=== PATIENT | male | born 1970 | race Two or more races ===

== ENCOUNTER 2024-07-04 09:19 | Emergency (ER) | payer OTHER, SELFPAY ==
[2024-07-04 09:49] VITALS: BMI 28.3
[2024-07-04 09:53] VITALS: BP 117/86; PULSE 103; RESP 18; TEMP 37.3; O2SAT 97
--- NOTE | 2024-07-04 10:47 | EDNOTE_ITS ---
ED Dental RME/HPI General Chief complaint: Dental/Oral/Throat Stated complaint: PERITONSILLAR ABCESS WITH DROOLING Time Seen by Provider: 07/04/24 10:02 Arrival date/time: 07/04/24 09:19 RME / HPI RME / HPI Narrative: 54 year old male with history of depression, anxiety, bipolar disorder presents to the ED BIB [facility] for evaluation of sore throat today. Patient reportedly has had a sore throat for 3 months however worsening in the last week. Now accompanied by drooling and difficulty swallowing due to pain. Per [facility], staff at the senior living facility are concerned patient may have peritonsillar abscess. Patient states he is not currently on any antibiotics. Denies fevers, chills, difficulty breathing, nausea, vomiting, abdominal pain, or other associated symptoms. Related Data Allergies Allergy/AdvReac Type Severity Reaction Status Date / Time No Known Allergies Allergy Verified 07/04/24 09:53 Review of Systems Review of Systems Narrative Review of Systems: Constitutional: DENIES; Fevers Eyes: DENIES; Loss of vision Head/Ear/Nose: DENIES; Loss of hearing Throat: SEE HP +sore throat, pain with swallowing, drooling Cardiovascular: DENIES; Chest pain, dyspnea or syncope Respiratory: DENIES; Shortness of breath Gastrointestinal: DENIES; Rectal bleeding or melena. Genitourinary: DENIES; Dysuria (painful or difficult urination) Musculoskeletal: DENIES; Arthralgia (pain in a joint),; Skin: DENIES; Rash Neurological: DENIES; Loss of function or movement Psychiatric: DENIES; recent major life stressor, emotional problem, illicit drug use or abuse Endocrinology: DENIES; Weight change Hematologic/Lymphatic: DENIES; Abnormal bruising Allergic/Immunologic: DENIES; Urticaria (hives) Past Medical History Past Medical History CARDIAC: Positive Cardiac Disorders and Congestive Heart Failure RESPIRATORY: Positive Respiratory Disorders and Asthma PSYCHO/SOCIAL: Positive Schizophrenia, Bipolar Disorder, Depression and Anxiety Social History SMOKING STATUS: Former smoker ED Exam Narrative Physical exam: Physical Exam: General: The vital signs were reviewed. The patient is non-toxic, in no apparent distress and appears healthy with a patent airway, no respiratory distress and has no apparent circulatory problems. Head & Scalp: Normocephalic, atraumatic. Face: Appears normal and is without lesions, deformity. Ears: Left external pinna appears normal. Right external pinna appears normal. Eyes: The sclera is anicteric. No obvious photophobia. The Left and Right Orbit/Lid/Conjunctiva appears normal without swelling, discoloration or injection. Nose: The nose is without deformity, discharge or tenderness; Throat: Patient has a right tonsillar erythema with some swelling but no uvular deviation. Airway is very patent. Otherwise remaining is normal. The mucous membranes are pink and moist without exudates, redness or mass seen. The tongue appears normal. Neck: The neck is supple and no apparent mass or adenopathy. Chest: The chest wall is normal in size and symmetry and has no chest wall tendernes s or crepitus. The patient displays normal ventilator effort without retractions, accessory muscle use and has adequate air movement bilaterally with no wheezes and no rales. Cardiovascular: Regular rate and rhythm; No murmurs, rubs, or gallops; Gastrointestinal: The abdomen appears normal. No obvious hernias or mass. The abdomen is soft and benign, non-distended, with no pain, no guarding and no rebound tenderness. Bowel sounds are present and normal sounding. No CVA tenderness. Genitourinary: Back/Spine: Normal inspection nontender Extremities/Musculoskeletal/lymphatic: The bilateral upper and lower extremities are warm. There is no evidence of arterial insufficiency. There is no evidence of venous insufficiency/edema. The patient spontaneously moves bilateral upper and lower extremities with no pain and no limitation of movement. There is no apparent, injury or trauma. Skin: The skin is warm, dry and intact. No rashes. No petechia. No purpura. No abnormal bruising. The color is appropriate with no cyanosis. Mental status/Psychiatric: Mental status is appropriate for age. The patient has no apparent delusions, visual hallucinations, no apparent audible hallucinations. The patient has no apparent suicidal thoughts/ideation and no apparent homicidal thoughts/ideation. Neurological: The patient is awake, alert, interactive, cordial, cooperative and is oriented to name and situation. The patient follows commands and answers historical question with no impairment. There is no visual disturbance apparent. The pupils are equal and reactive bilaterally with normal eye movements and no diplopia The bilateral upper and lower extremities have normal strength, normal range of motion and normal functioning. The gait, station and balance appear to be baseline with no acute change Course Quality Measures none Orders Category Date Time Status Amoxicillin/Pot Clav 875 [Augmentin 875] Med 07/04/24 11:52 Discontinued 1 tab PO X1 ONE Vital Signs Vital signs: Vital Signs Temperature 99.2 F 07/04/24 09:53 Pulse Rate 103 H 07/04/24 09:53 Respiratory Rate 18 07/04/24 09:53 Blood Pressure 117/86 H 07/04/24 09:53 Pulse Oximetry (%) 97 07/04/24 09:53 Oxygen Delivery Method Room Air 07/04/24 09:53 Pulse ox is 97% on room air which is adequate. Dental / Oral MDM Narrative MDM Narrative:: ILing am scribing for and in the presence of Dr. Mao. Patient was sent here for concern for possible peritonsillar abscess. Clinically if he has a peritonsillar abscess is very minimal. There is no uvular deviation. There is fullness on the right tonsil but the airway is very patent. There are some adenopathy in the submandibular area. There is a shortage of Bicillin evidently so we will give the patient Augmentin for little broader spectrum coverage. Patient complains of difficulty swallowing but as soon as I was a finished with antiacid there was something in it like a sandwich. He can take Augmentin 875 mg twice a day for the next 5 to 7 days [facility]. Patient data External records reviewed:: [facility] previous records (Per EMR, no previous visits for review ) Clinical information provided by:: patient and law enforcement Social determinants that could affect healthcare access:: housing (patient incarcerated ) Patient has the following chronic illnesses:: depression, anxiety, bipolar disorder How is presenting disease/condition affected by chronic disease/condition?: uneffected by Evaluation data The following diagnostics were reviewed and interpreted by me:: other (specify) (No diagnostics ordered ) Lab and/or radiology exams considered but not ordered:: None Interpretation Summary: see above Medications / Prescriptions Medications or Prescriptions considered but not ordered:: None Medication administrations:: Medication Administration History Discontinued Medications Amoxicillin/Clavulanate Potassium (Amoxicillin/Pot Clav 875 Tablet) 1 tab PO X1 ONE Stop: 07/04/24 11:53 Last Admin: 07/04/24 12:17 Dose: 1 tab Documented By: AA See above Consultations Consultation(s) initiated? (list below): No Diagnosis Dental Differential Diagnosis: aphthous ulcer and other (strep throat, peritonsillar abscess) Most likely diagnosis given after review of the tests above:: Enlargement of right palatine tonsil Acute tonsillitis Medical clearance for incarceration Admission Indicated Admission indicated?: not indicated Admission Request Was there a request for admission?: No Disposition Plan Disposition Plan: Discharge Discharge Attestation Discharge Attestation: The patient and all family members were given an opportunity to ask questions and understood the discharge instructions. Discharge instructions specifically effects, indications for sooner follow up or return to the emergency department, and the expected course of current diagnosis. Patient condition: Stable Discharge Plan Plan Patient Disposition: Halfway/Court/Law Prescriptions/Referrals Referrals: No Primary/Family,Physician [Primary Care Provider] - In 1 week Problem List Clinical Impression: Enlargement of right palatine tonsil, Acute tonsillitis, Medical clearance for incarceration Patient/Caregiver Discharge Instructions Education Materials: Tonsillitis in Adults Additional Instructions: Please prescribe Augmentin 875 twice a day for the next 7 days. Have daily penitentiary rechecks of the tonsil and if he is getting worse please return for reevaluation. Please drink plenty of fluids Tylenol for pain. There is no evidence of uvular deviation or airway obstruction at this time. Print Language: Armenian
[2024-07-04 11:44] VITALS: BP 122/85; PULSE 94; RESP 18; TEMP 37.1; O2SAT 96
[2024-07-04] MEDS: AMOXICILLIN/POT CLAV 875 TABLET 1 TAB PO (12:17)
== END 2024-07-04 12:22 ==
PROVIDERS: Emergency Provider Emergency Medicine
DX: Z02.89 Encounter for other administrative examinations (principal); J35.1 Hypertrophy of tonsils
CPT/HCPCS: 99282; A9270